=== PATIENT | female | born 1985 | race Caucasian/White ===

== ENCOUNTER 2019-10-14 14:19 | Inpatient (IN) | payer OTHER ==
[~2019-10-14] VITALS: Ht 177.8 cm; Wt 88.0 kg
[2019-10-14] MEDS: LACTATED RINGERS 1,000 ML IV SCH (14:44)
[2019-10-14] MEDS ORDERED: OXYTOCIN 30U/ 0.9% NaCL 500ML 500 ML IV ONE (14:45)
[2019-10-14] MEDS ORDERED: D5%-LACTATED RINGERS 1,000 ML IV SCH (14:45)
[2019-10-14] MEDS ORDERED: FENTANYL PF 100 MCG/2ML ONE (14:48)
[2019-10-14] MEDS ORDERED: FENTANYL PF 100 MCG/2ML IVPush PRN (15:00)
[2019-10-14] MEDS ORDERED: PENICILLIN GK 5,000,000 UNITS in DEXTROSE 5% 100 ML IVPB ONE (15:00)
[2019-10-14] MEDS ORDERED: TERBUTALINE 1 MG/ML, 1ML SQ PRN (15:00)
[2019-10-14] MEDS ORDERED: ONDANSETRON 2MG/ML, 2ML IVPush PRN (15:00)
[2019-10-14] MEDS ORDERED: FENTANYL PF 100 MCG/2ML IV PRN (15:00)
[2019-10-14] MEDS ORDERED: TERBUTALINE 1 MG/ML, 1ML IVPush PRN (15:00)
[2019-10-14] MEDS ORDERED: CALCIUM CARBONATE 500 MG TAB.CHEW PO PRN ×2 (15:00→21:00)
[2019-10-14] MEDS ORDERED: OXYTOCIN 30U/ 0.9% NaCL 500ML 500 ML ONE (15:04)
[2019-10-14 15:26] LABS: MEAN CORPUSCULAR HGB CONC 33.2 g/dL (32.4-35.8); MEAN CORPUSCULAR VOLUME 93.5 fL (80-100); MEAN PLATELET VOLUME 7.7 fL (7.4-10.4); PLATELET COUNT 227 x10^3/uL (130-400); RED CELL DISTRIBUTION WIDTH 13.2 % (9.6-15.2)
[2019-10-14] MEDS ORDERED: BUPIVACAINE 0.25% ONE (15:34)
[2019-10-14] MEDS ORDERED: FENTANYL/BUPIV./NS/PF 250 ML EPIDCONT ONE (15:34)
[2019-10-14 15:52] LABS: BASOPHILS # (AUTO) 0.03 x10^3/uL (0-0.1); BASOPHILS % (AUTO) 0 % (0-1); EOSINOPHILS # (AUTO) 0.02 x10^3/uL (0-0.4); EOSINOPHILS % (AUTO) 0 % (1-7); LYMPHOCYTES # (AUTO) 1.73 x10^3/uL (1-3.4); LYMPHOCYTES % (AUTO) 10 % (22-44); MD SCAN; MONOCYTES # (AUTO) 0.68 x10^3/uL (0.2-0.8); MONOCYTES % (AUTO) 4 % (2-9); NEUTROPHILS # (AUTO) 14.34 x10^3/uL (1.8-6.8); NEUTROPHILS % (AUTO) 85 % (42-75)
[2019-10-14] MEDS ORDERED: NEWBORN KIT ONE (16:57)
[2019-10-14] MEDS: PENICILLIN GK 2,500,000 UNITS in DEXTROSE 5% 100 ML IV SCH ×2 (18:44→23:05)
[2019-10-14] MEDS ORDERED: LIDOCAINE 1%, 20ML ONE (19:25)
[2019-10-14] MEDS ORDERED: MISOPROSTOL 200 MCG TABLET ONE (19:25)
[2019-10-14 19:32] VITALS: BP 121/68
[2019-10-14] MEDS ORDERED: MISOPROSTOL 200 MCG TABLET PR PRN (21:00)
[2019-10-14] MEDS ORDERED: ONDANSETRON 2MG/ML, 2ML IV PRN (21:00)
[2019-10-14] MEDS ORDERED: OXYcodone IR 5MG TABLET PO PRN (21:00)
[2019-10-14] MEDS ORDERED: SIMETHICONE 80 MG CHEW TAB PO PRN (21:00)
[2019-10-15] MEDS ORDERED: IBUPROFEN 600 MG TABLET ONE (00:30)
[2019-10-15] MEDS ORDERED: OXYTOCIN 30U/ 0.9% NaCL 500ML 500 ML ONE (00:30)
[2019-10-15] MEDS: IBUPROFEN 600 MG TABLET PO PRN ×3 (00:32→17:30)
[2019-10-15] MEDS: OXYTOCIN 30U/ 0.9% NaCL 500ML 500 ML IV SCH ×3 (00:33→16:46)
[2019-10-15] MEDS: LACTATED RINGERS 1,000 ML IV SCH (00:33)
[2019-10-15 02:15] VITALS: BP 112/67
[2019-10-15] MEDS: OXYcodone/APAP 5/325MG TABLET PO PRN ×3 (02:33→17:32)
[2019-10-15 04:03] VITALS: BP 98/59
[2019-10-15 07:20] VITALS: BP 126/87
[2019-10-15] MEDS: DOCUSATE 100 MG CAPSULE PO PRN ×2 (08:46→21:09)
[2019-10-15] MEDS: PRENATAL VIT/IRON/FA 1 EACH TABLET PO SCH (08:46)
[2019-10-15 09:41] LABS: MEAN CORPUSCULAR HEMOGLOBIN 30.9 pg (27.0-34.8); MEAN CORPUSCULAR HGB CONC 32.6 g/dL (32.4-35.8); MEAN PLATELET VOLUME 7.6 fL (7.4-10.4); PLATELET COUNT 198 x10^3/uL (130-400); RED BLOOD COUNT 3.58 x10^6/uL (3.82-5.3)
[2019-10-15 10:08] LABS: BASOPHILS # (AUTO) 0.01 x10^3/uL (0-0.1); BASOPHILS % (AUTO) 0 % (0-1); EOSINOPHILS # (AUTO) 0.05 x10^3/uL (0-0.4); EOSINOPHILS % (AUTO) 0 % (1-7); LYMPHOCYTES # (AUTO) 1.81 x10^3/uL (1-3.4); LYMPHOCYTES % (AUTO) 8 % (22-44); MD SCAN; MONOCYTES % (AUTO) 3 % (2-9); NEUTROPHILS # (AUTO) 19.59 x10^3/uL (1.8-6.8); NEUTROPHILS % (AUTO) 88 % (42-75)
[2019-10-15 12:05] VITALS: BP 114/76
[2019-10-15 16:00] VITALS: BP 114/73
[2019-10-15 19:50] VITALS: BP 109/71
[2019-10-15] MEDS: ACETAMINOPHEN 325 MG TABLET PO PRN (21:09)
[2019-10-16] MEDS: IBUPROFEN 600 MG TABLET PO PRN ×3 (00:46→12:37)
[2019-10-16] MEDS: OXYTOCIN 30U/ 0.9% NaCL 500ML 500 ML IV SCH (02:46)
[2019-10-16] MEDS: ACETAMINOPHEN 325 MG TABLET PO PRN (06:40)
[2019-10-16 08:00] VITALS: BP 111/67
[2019-10-16] MEDS: DOCUSATE 100 MG CAPSULE PO PRN (09:15)
[2019-10-16] MEDS: PRENATAL VIT/IRON/FA 1 EACH TABLET PO SCH (09:15)
[2019-10-16] MEDS ORDERED: IBUP-1222 PO (12:11)
[2019-10-16] MEDS ORDERED: DIPH,PERTUSS(ACELL),TET VAC/PF NC IM-VACC ONE ×2 (12:43→13:00)
== END 2019-10-16 12:58 | disposition home or self-care (01) | DRG 807 ==
LOC: LDOP 14:19 → LDIP 14:53 → 2NW 10-15 02:02
PROVIDERS: ADMIT Obstetrics & Gynecology; ATTEND Obstetrics & Gynecology
PROC: 10E0XZZ Delivery of Products of Conception, External Approach (ICD-10-PCS; principal; 2019-10-14)
PROC: 3E0R3BZ Introduction of Anesthetic Agent into Spinal Canal, Percutaneous Approach (ICD-10-PCS; 2019-10-14)
PROC: 00HU33Z Insertion of Infusion Device into Spinal Canal, Percutaneous Approach (ICD-10-PCS; 2019-10-14)
PROC: 10907ZC Drainage of Amniotic Fluid, Therapeutic from Products of Conception, Via Natural or Artificial Opening (ICD-10-PCS; 2019-10-14)
PROC: 0KQM0ZZ Repair Perineum Muscle, Open Approach (ICD-10-PCS; 2019-10-14)
DX: O99.824 Streptococcus B carrier state complicating childbirth (principal); Z37.0 Single live birth; O70.1 Second degree perineal laceration during delivery; O90.89 Other complications of the puerperium, not elsewhere classified; R33.9 Retention of urine, unspecified; Z83.3 Family history of diabetes mellitus; Z3A.39 39 weeks gestation of pregnancy
CPT/HCPCS: 36415; J7121; 82803; 85025; 86592; 86850; 86900; 90715; G0378; J2540; J3010; J2590; J7120